=== PATIENT | male | born 1980 ===

== ENCOUNTER 2021-11-05 15:26 | Emergency (ER) | payer MEDICAID ==
[~2021-11-05] VITALS: Ht 172.7 cm; Wt 135.0 kg
--- NOTE | 2021-11-05 15:44 | NUR ---
EKG [id number]
[2021-11-05 16:01] VITALS: BP 143/95
== END 2021-11-05 19:46 | disposition left against medical advice (07) ==
LOC: ER 15:29
DX: R00.2 Palpitations (principal); Z53.21 Procedure and treatment not carried out due to patient leaving prior to being seen by health care provider
CPT/HCPCS: 93005